=== PATIENT | male | born 1985 | race Caucasian/White ===

== ENCOUNTER 2023-04-21 10:01 | Outpatient (AMB) | payer MEDICAID, SELFPAY ==
--- NOTE | 2023-04-21 10:07 | A.OFFVIS_ITS ---
Intake Intake Visit Reasons: INFORMATICS NURSE SPECIALIST-Achilles tendon injury, left Intake Note: Edson is a 38 year old male who presents today as a new patient with complaints of Achilles tendon injury. He has history of Achilles Tendon Tear on August 15 2020 while playing basketball with [facility] October 20 2020 at the [facility]. Since this surgery patient has experienced pain, weakness and lack of sensation in the foot. Has numbness on the lateral aspect of the foot. Allergies No Known Allergies Allergy (Unverified 04/21/23 10:22) HPI INFORMATICS NURSE SPECIALIST-Achilles tendon injury, left HPI Details Edson is a 38 year old man who presents with complaints of left ankle pain. He has a hx of a left Achilles tendon repair on 10/20/20 at an outside clinic, following an injury on 08/15/22, and he says since this surgery he has felt pain, weakness and diminished sensation in his foot. He reports numbness in the lateral aspect of his foot. He reports having felt a pop and asking for medial evaluation while he was incarcerated and finally, after 3 months, being evaluated. At that point surgery was recommended and he underwent an achilles repair ?. The surgical recovery was extremely painful for him and he describes extreme untreated pain that, after 8 months, partially resolved. He now describes stiffness, mild pain and lateral foot numbness. [facility] Surgical History (Updated 04/23/23 @ 09:38 by Gato Thurman MD) H/O Achilles tendon repair (~2018) Review of Systems Const All systems reviewed & are unremarkable except as noted in HPI and below Physical Exam Const General: no acute distress, alert and awake Orientation/consciousness: patient oriented x3 HEENT Head: Yes normocephalic and Yes atraumatic Eyes EOM: EOMs intact bilaterally Resp Effort & Inspection: normal respiratory effort and able to speak in complete sentences Cardio Jugular venous distension: no JVD Skin General skin exam: turgor normal Rashes: no rashes Neuro General: patient oriented x3 Extrem Other: long posterio inc over the achilles. the achilles feels fobrous but intact with a intact but limited Peters test. There is subjectively diminished sensation over the sural nerve distribution. Psych Appearance: grossly normal Affect: normal affect Attitude: cooperative Assessment & Plan Assessment & Plan (1) H/O Achilles tendon repair: Onset Date: ~2018 Comment: Left 2020 right 2019 Code(s): Z98.890 - Other specified postprocedural states Plan: Left achilles tendon pain and lateral foot numbness s/p surgery in 2020. I recommend MRI as I cannot fully assess the integrity of the achilles, especially in light of a reported history of a late repair/possible reconstruction. MRI was ordered. Plan Scribed for Gato Thurman MD by Aaron Sandoval, medical director/head team physician, on 04/21/23 at 10:20 AM, EST. Orders: Orders MR ankle LT wo con Today Z98.890 - Other specified postprocedural states Coding Level of Care Code New Pt Level 4 (28985) Diagnoses H/O Achilles tendon repair Z98.890
== END 2023-04-21 10:53 | disposition home or self-care (01) ==
PROVIDERS: Visit Provider Orthopaedic Surgery
DX: M25.572 Pain in left ankle and joints of left foot (principal)
CPT/HCPCS: 99204

== ENCOUNTER → 2023-04-21 10:01 | Outpatient (BNVA) | payer MEDICAID, SELFPAY | PROVIDERS: Visit Provider Orthopaedic Surgery | DX: M79.672 Pain in left foot (principal); R20.0 Anesthesia of skin; Z98.890 Other specified postprocedural states | CPT/HCPCS: 99202 ==